=== PATIENT | female | born 1950 | race Caucasian/White ===

== ENCOUNTER 2023-09-10 07:02 | Day surgery (SDC) | payer BC, SELFPAY ==
--- NOTE | 2023-09-07 08:40 | HO.ANESPROP2 ---
Documented by User: Carleen Paris NP 09/07/23 08:40 HPI - Anesthesia Eval Consult details Narrative: 72yo F for Left Cataract Extraction IOL Insertion PCP cleared No previous cataract on record PMFSH Past Medical History Medical History Hearing loss Panic attacks History of pernicious anemia Stress incontinence Solitary lung nodule Chronic sinusitis History of pneumonia Cataract Herpes GERD (gastroesophageal reflux disease) Thyroid disorder Depression Bipolar disorder Hypothyroid HTN (hypertension) Surgical History Surgical History History of tonsillectomy and adenoidectomy History of bladder surgery History of surgery (~1987) Hx of colonoscopy Hx of esophagogastroduodenoscopy Social History Social History Patient Tobacco Use Status: Never used Tobacco Are you DNR?: No Advance Directives: No Advance Directives Information Provided: Yes Recently lost weight without trying: No Nutrition Risks: No Nutritional Risk Meds Allergies Allergy/AdvReac Type Severity Reaction Status Date / Time No Known Allergies Allergy Unverified 04/15/20 17:56 Home Medications Medication Instructions Recorded Confirmed Last Taken Type acyclovir 400 mg tablet 400 mg PO DAILY 09/06/23 09/06/23 Unknown History alprazolam 0.5 mg tablet 0.5 mg PO DIRECTED 09/06/23 09/06/23 Unknown History amlodipine 5 mg tablet 5 mg PO DAILY 09/06/23 09/06/23 Unknown History bupropion HCl 300 mg 24 hr tablet, 300 mg PO QAM 09/06/23 09/06/23 Unknown History extended release cyanocobalamin (vitamin B-12) mcg IM 09/06/23 Unknown History 1,000 mcg/mL injection solution diclofenac sodium 50 mg 50 mg PO BID 09/06/23 09/06/23 Unknown History tablet,delayed release estradiol 10 mcg vaginal tablet mcg vaginal 09/06/23 09/06/23 Unknown History (Yuvafem) lamotrigine 150 mg tablet 150 mg PO BID 09/06/23 09/06/23 Unknown History levothyroxine 100 mcg tablet 100 mcg PO DAILY 09/06/23 09/06/23 Unknown History (Synthroid) lisinopril 10 mg tablet 10 mg PO DAILY 09/06/23 09/06/23 Unknown History lurasidone 20 mg tablet 20 mg PO DAILY 09/06/23 09/06/23 Unknown History trospium 60 mg capsule,extended mg PO 09/06/23 Unknown History release 24 hr ascorbic acid (vitamin C) 1,000 mg 1,000 mg PO DAILY 09/07/23 09/07/23 Unknown History tablet (Vitamin C) escitalopram oxalate 20 mg tablet 20 mg PO DAILY 09/07/23 09/07/23 Unknown History (Lexapro) lorazepam 0.5 mg tablet 0.5 mg PO DAILY PRN Anxiety 09/07/23 09/07/23 Unknown History lurasidone 09/07/23 Unknown History multivitamin 1 tab PO DAILY 09/07/23 09/07/23 Unknown History Assessment and Plan Assessment Anesthesia Assessment: Chart Reviewed Documented by User: Kamala Platt MD 09/10/23 08:07 [facility] Past Medical History Medical History Hearing loss Panic attacks History of pernicious anemia Stress incontinence Solitary lung nodule Chronic sinusitis History of pneumonia Cataract Herpes GERD (gastroesophageal reflux disease) Thyroid disorder Depression Bipolar disorder Hypothyroid HTN (hypertension) Surgical History Surgical History History of tonsillectomy and adenoidectomy History of bladder surgery History of surgery (~1987) Hx of colonoscopy Hx of esophagogastroduodenoscopy History of Problems with Anesthesia: No Social History Social History Patient Tobacco Use Status: Never used Tobacco Are you DNR?: No Advance Directives: No Advance Directives Information Provided: Yes Recently lost weight without trying: No Nutrition Risks: No Nutritional Risk Meds Allergies Allergy/AdvReac Type Severity Reaction Status Date / Time No Known Allergies Allergy Unverified 04/15/20 17:56 Home Medications Medication Instructions Recorded Confirmed Last Taken Type acyclovir 400 mg tablet 400 mg PO DAILY 09/06/23 09/06/23 Unknown History alprazolam 0.5 mg tablet 0.5 mg PO DIRECTED 09/06/23 09/06/23 Unknown History amlodipine 5 mg tablet 5 mg PO DAILY 09/06/23 09/06/23 Unknown History bupropion HCl 300 mg 24 hr tablet, 300 mg PO QAM 09/06/23 09/06/23 Unknown History extended release cyanocobalamin (vitamin B-12) mcg IM 09/06/23 Unknown History 1,000 mcg/mL injection solution diclofenac sodium 50 mg 50 mg PO BID 09/06/23 09/06/23 Unknown History tablet,delayed release estradiol 10 mcg vaginal tablet mcg vaginal 09/06/23 09/06/23 Unknown History (Yuvafem) lamotrigine 150 mg tablet 150 mg PO BID 09/06/23 09/06/23 Unknown History levothyroxine 100 mcg tablet 100 mcg PO DAILY 09/06/23 09/06/23 Unknown History (Synthroid) lisinopril 10 mg tablet 10 mg PO DAILY 09/06/23 09/06/23 Unknown History lurasidone 20 mg tablet 20 mg PO DAILY 09/06/23 09/06/23 Unknown History trospium 60 mg capsule,extended mg PO 09/06/23 Unknown History release 24 hr ascorbic acid (vitamin C) 1,000 mg 1,000 mg PO DAILY 09/07/23 09/07/23 Unknown History tablet (Vitamin C) escitalopram oxalate 20 mg tablet 20 mg PO DAILY 09/07/23 09/07/23 Unknown History (Lexapro) lorazepam 0.5 mg tablet 0.5 mg PO DAILY PRN Anxiety 09/07/23 09/07/23 Unknown History lurasidone 09/07/23 Unknown History multivitamin 1 tab PO DAILY 09/07/23 09/07/23 Unknown History Exam Airway Mallampati Class: II TM Dist: >3cm Neck ROM: Full Loose/Missing/Broken Teeth: No Heart: RRR Lungs: CTA Assessment and Plan Assessment Anesthesia Assessment: Anesthesia Plan Discussed Final Anesthetic Review History of Problems with Anesthesia: No NPO: Yes ASA Class: II Final Preanesthetic Review: Meds/Allgs Chart Reviewed, Consent Obtained/Reviewed and Anes Risks/Benef Reviewed Patient Risk: Low Procedure Risk: Low Anesthetic Plan Anesthetic Plan: MAC: Disposition: Standard PACU
[2023-09-07 11:14] VITALS: BMI 23.7
[2023-09-10 07:43] VITALS: BP 152/79; PULSE 67; RESP 18; TEMP 36.3; O2SAT 96
[2023-09-10] MEDS: Tetracaine HCl/PF 0.5% Oph Sol 4 ML DROPS 1 DROP EYE-LEFT (07:58)
[2023-09-10] MEDS: Lactated Ringers 500 ML 50 ML IV (07:58)
[2023-09-10] MEDS: Tropicamide 1 % Ophth Sol 3 ML BTL 1 DROP EYE-LEFT ×3 (07:59→08:01)
[2023-09-10] MEDS: Ketorolac Tromethamine 0.5% Op 5 ML DROPS 1 DROP EYE-LEFT ×3 (07:59→08:01)
[2023-09-10] MEDS: Phenylephrine HCL 2.5% Oph SoL 2 ML BOTTLE 1 DROP EYE-LEFT ×3 (07:59→08:01)
[2023-09-10] MEDS: Cyclopentolate 1 % Ophth Sol 2 ML DRPBTL 1 DROP EYE-LEFT ×3 (07:59→08:01)
--- NOTE | 2023-09-10 08:57 | MHC.SHP ---
Pre-Procedural Eval Section A - 24 Hr Update-Section A only Date of Service: 09/10/23 The patient is an INPATIENT: No Changes since office visit: No Cold of Flu in the past 2 weeks, No New Medical Problems, No Changes in Medication and No Patient answered all questions The patient has been examined within 24 hours of the surgical procedure. The History & Physical has been completed within 30 days and I have reviewed it.: Yes Section B - Complete if H&P > 30 days Chief Complaint: Age-related nuclear cataract, left eye Allergies: Allergies Allergy/AdvReac Type Severity Reaction Status Date / Time No Known Allergies Allergy Unverified 04/15/20 17:56 Plan I have reviewed the history and physical and performed a pertinent physical examination on my patient. No changes have occurred unless specified. Time Spent With Patient Time: Total time managing care of this patient today ____ minutes.
--- NOTE | 2023-09-10 08:57 | HO.PNOPHT ---
Ophthalmology Procedure Procedure Date of Service: 09/10/23 Ophthalmology Viscoelastic: Healon Duet Dual Pack Pro Ophthalmology Lenses: Other (MA60 20.5) Procedure Notes: PREOPERATIVE DIAGNOSIS: Decreased visual acuity left eye secondary to cataract POSTOPERATIVE DIAGNOSIS: Same PROCEDURE: Left cataract extraction with intraocular lens insertion SURGEON: Kirt Rea M.D. ANESTHESIA: Topical/MAC ESTIMATED BLOOD LOSS: None COMPLICATIONS: None After obtaining informed consent, the patient was brought to the operation room suite and placed in the supine position. After adequate sedation per anesthesia, topical drops of Tetracaine were given to the left eye. The eye was then prepped and draped in the usual sterile fashion. The operating room microscope was then positioned over the operative eye and a lid speculum placed. A paracentesis was created. Viscoelastic was then instilled into the anterior chamber. A three plane incision was then created temporally, utilizing a 2.85 mm keratome. Capsulotomy forceps were then utilized to create a circular tear capsulotomy. Hydrodissection and hydrodelineation were carried out until adequate mobilization of the nucleus occurred. Phacoemulsification was then utilized to remove the dense central nucleus followed by removal of the cortical material utilizing the automated aspiration irrigation unit. Viscoat elastic was instilled into the posterior capsular bag followed by placement of a posterior chamber intraocular lens without difficulty. The residual Viscoat elastic was then removed utilizing the automated IA machine. The wound was check and found to be watertight. The patient tolerated the procedure well and the lid speculum was removed. Intracameral injection of Vigamox 0.1 mL followed by a subtenon injection of Kenalog-40 0.2 mL were administered. The patient will be seen in the a.m.
[2023-09-10 09:23] VITALS: BP 135/76; PULSE 66; RESP 16; TEMP 36.4; O2SAT 96
== END 2023-09-10 09:38 | disposition home or self-care (01) ==
PROVIDERS: Visit Provider Ophthalmology
PROC: (CPT 66985; principal; 2023-09-10 08:40)
DX: H25.12 Age-related nuclear cataract, left eye (principal); Z83.511 Family history of glaucoma; H52.4 Presbyopia; D31.42 Benign neoplasm of left ciliary body; H40.013 Open angle with borderline findings, low risk, bilateral; H18.413 Arcus senilis, bilateral; H11.153 Pinguecula, bilateral; I10 Essential (primary) hypertension; E03.9 Hypothyroidism, unspecified; Z79.899 Other long term (current) drug therapy; Z87.891 Personal history of nicotine dependence
CPT/HCPCS: 66984; J2250; J3010; J3301; V2630

== ENCOUNTER 2023-10-01 07:58 | Day surgery (SDC) | payer BC, SELFPAY ==
[2023-09-26 15:57] VITALS: BMI 23.7
--- NOTE | 2023-09-28 10:37 | HO.ANESPROP2 ---
Documented by User: Carleen Paris NP 09/28/23 10:38 HPI - Anesthesia Eval Consult details Narrative: 72yo F for Right Cataract Extraction IOL Insertion Medically cleared Left eye 09/10/23: Fent 50, Midaz 1 PMFSH Past Medical History Medical History Hearing loss Panic attacks History of pernicious anemia Stress incontinence Solitary lung nodule Chronic sinusitis History of pneumonia Cataract Herpes GERD (gastroesophageal reflux disease) Thyroid disorder Depression Bipolar disorder Hypothyroid HTN (hypertension) Surgical History Surgical History (Updated 09/26/23 @ 15:58 by Susanna Burks RN) Hx of left cataract extraction (09/10/23) History of tonsillectomy and adenoidectomy History of bladder surgery History of surgery (~1987) Hx of colonoscopy Hx of esophagogastroduodenoscopy History of Problems with Anesthesia: No Social History Social History Patient Tobacco Use Status: Never used Tobacco Are you DNR?: No Advance Directives: No Advance Directives Information Provided: Yes Nutrition Risks: No Nutritional Risk Meds Allergies Allergy/AdvReac Type Severity Reaction Status Date / Time No Known Allergies Allergy Unverified 04/15/20 17:56 Home Medications Medication Instructions Recorded Confirmed Last Taken Type acyclovir 400 mg tablet 400 mg PO DAILY 09/06/23 09/06/23 Unknown History alprazolam 0.5 mg tablet 0.5 mg PO DIRECTED 09/06/23 09/06/23 Unknown History amlodipine 5 mg tablet 5 mg PO DAILY 09/06/23 09/06/23 Unknown History bupropion HCl 300 mg 24 hr tablet, 300 mg PO QAM 09/06/23 09/06/23 Unknown History extended release cyanocobalamin (vitamin B-12) mcg IM 09/06/23 Unknown History 1,000 mcg/mL injection solution diclofenac sodium 50 mg 50 mg PO BID 09/06/23 09/06/23 Unknown History tablet,delayed release estradiol 10 mcg vaginal tablet mcg vaginal 09/06/23 09/06/23 Unknown History (Yuvafem) lamotrigine 150 mg tablet 150 mg PO BID 09/06/23 09/06/23 Unknown History levothyroxine 100 mcg tablet 100 mcg PO DAILY 09/06/23 09/06/23 Unknown History (Synthroid) lisinopril 10 mg tablet 10 mg PO DAILY 09/06/23 09/06/23 Unknown History lurasidone 20 mg tablet 20 mg PO DAILY 09/06/23 09/06/23 Unknown History trospium 60 mg capsule,extended mg PO 09/06/23 Unknown History release 24 hr ascorbic acid (vitamin C) 1,000 mg 1,000 mg PO DAILY 09/07/23 09/07/23 Unknown History tablet (Vitamin C) escitalopram oxalate 20 mg tablet 20 mg PO DAILY 09/07/23 09/07/23 Unknown History (Lexapro) lorazepam 0.5 mg tablet 0.5 mg PO DAILY PRN Anxiety 09/07/23 09/07/23 Unknown History lurasidone 09/07/23 Unknown History multivitamin 1 tab PO DAILY 09/07/23 09/07/23 Unknown History Exam Height,Weight and Vital Signs: Height 5 ft 3.25 in Weight 61.23 kg Assessment and Plan Assessment Anesthesia Assessment: Chart Reviewed Final Anesthetic Review History of Problems with Anesthesia: No Documented by User: Santos Whittington MD 10/01/23 10:08 [facility] Past Medical History Medical History Hearing loss Panic attacks History of pernicious anemia Stress incontinence Solitary lung nodule Chronic sinusitis History of pneumonia Cataract Herpes GERD (gastroesophageal reflux disease) Thyroid disorder Depression Bipolar disorder Hypothyroid HTN (hypertension) Family History Family history of problems with anesthesia: No Surgical History Surgical History (Updated 09/26/23 @ 15:58 by Susanna Burks RN) Hx of left cataract extraction (09/10/23) History of tonsillectomy and adenoidectomy History of bladder surgery History of surgery (~1987) Hx of colonoscopy Hx of esophagogastroduodenoscopy Social History Social History Patient Tobacco Use Status: Never used Tobacco Are you DNR?: No Advance Directives: No Advance Directives Information Provided: Yes Nutrition Risks: No Nutritional Risk Meds Allergies Allergy/AdvReac Type Severity Reaction Status Date / Time No Known Allergies Allergy Unverified 04/15/20 17:56 Home Medications Medication Instructions Recorded Confirmed Last Taken Type acyclovir 400 mg tablet 400 mg PO DAILY 09/06/23 09/06/23 Unknown History alprazolam 0.5 mg tablet 0.5 mg PO DIRECTED 09/06/23 09/06/23 Unknown History amlodipine 5 mg tablet 5 mg PO DAILY 09/06/23 09/06/23 Unknown History bupropion HCl 300 mg 24 hr tablet, 300 mg PO QAM 09/06/23 09/06/23 Unknown History extended release cyanocobalamin (vitamin B-12) mcg IM 09/06/23 Unknown History 1,000 mcg/mL injection solution diclofenac sodium 50 mg 50 mg PO BID 09/06/23 09/06/23 Unknown History tablet,delayed release estradiol 10 mcg vaginal tablet mcg vaginal 09/06/23 09/06/23 Unknown History (Yuvafem) lamotrigine 150 mg tablet 150 mg PO BID 09/06/23 09/06/23 Unknown History levothyroxine 100 mcg tablet 100 mcg PO DAILY 09/06/23 09/06/23 Unknown History (Synthroid) lisinopril 10 mg tablet 10 mg PO DAILY 09/06/23 09/06/23 Unknown History lurasidone 20 mg tablet 20 mg PO DAILY 09/06/23 09/06/23 Unknown History trospium 60 mg capsule,extended mg PO 09/06/23 Unknown History release 24 hr ascorbic acid (vitamin C) 1,000 mg 1,000 mg PO DAILY 09/07/23 09/07/23 Unknown History tablet (Vitamin C) escitalopram oxalate 20 mg tablet 20 mg PO DAILY 09/07/23 09/07/23 Unknown History (Lexapro) lorazepam 0.5 mg tablet 0.5 mg PO DAILY PRN Anxiety 09/07/23 09/07/23 Unknown History lurasidone 09/07/23 Unknown History multivitamin 1 tab PO DAILY 09/07/23 09/07/23 Unknown History Exam Airway Mallampati Class: II TM Dist: >3cm Neck ROM: Full Assessment and Plan Assessment Anesthesia Assessment: Anesthesia Plan Discussed Final Anesthetic Review Family History of Problems with Anesthesia: No NPO: Yes ASA Class: III Final Preanesthetic Review: No Changes in Pt Med Stat, Meds/Allgs Chart Reviewed, Consent Obtained/Reviewed and Anes Risks/Benef Reviewed Patient Risk: Intermediate Procedure Risk: Low Anesthetic Plan Anesthetic Plan: MAC: Disposition: Standard PACU
[2023-10-01] MEDS: Lactated Ringers 500 ML 50 ML IV (09:44)
[2023-10-01] MEDS: Tropicamide 1 % Ophth Sol 3 ML BTL 1 DROP EYE-RIGHT ×3 (09:45→09:53)
[2023-10-01] MEDS: Ketorolac Tromethamine 0.5% Op 5 ML DROPS 1 DROP EYE-RIGHT ×3 (09:45→09:53)
[2023-10-01] MEDS: Cyclopentolate 1 % Ophth Sol 2 ML DRPBTL 1 DROP EYE-RIGHT ×3 (09:45→09:54)
[2023-10-01] MEDS: Tetracaine HCl/PF 0.5% Oph Sol 4 ML DROPS 1 DROP EYE-RIGHT (09:45)
[2023-10-01] MEDS: Phenylephrine HCL 2.5% Oph SoL 2 ML BOTTLE 1 DROP EYE-RIGHT ×3 (09:45→09:53)
[2023-10-01 10:04] VITALS: BP 140/81; PULSE 66; RESP 18; TEMP 36.7; O2SAT 97
--- NOTE | 2023-10-01 12:15 | MHC.SHP ---
Pre-Procedural Eval Section A - 24 Hr Update-Section A only Date of Service: 10/01/23 The patient is an INPATIENT: No Changes since office visit: No Cold of Flu in the past 2 weeks, No New Medical Problems, No Changes in Medication and No Patient answered all questions The patient has been examined within 24 hours of the surgical procedure. The History & Physical has been completed within 30 days and I have reviewed it.: Yes Section B - Complete if H&P > 30 days Chief Complaint: Age-related nuclear cataract, right eye Allergies: Allergies Allergy/AdvReac Type Severity Reaction Status Date / Time No Known Allergies Allergy Unverified 04/15/20 17:56 Plan Diagnosis/Plan: Unchanged I have reviewed the history and physical and performed a pertinent physical examination on my patient. No changes have occurred unless specified. Time Spent With Patient Time: Total time managing care of this patient today ____ minutes.
--- NOTE | 2023-10-01 12:16 | HO.PNOPHT ---
Ophthalmology Procedure Procedure Date of Service: 10/01/23 Ophthalmology Viscoelastic: Healon Duet Dual Pack Pro Ophthalmology Lenses: Other (ma60 20) Procedure Notes: PREOPERATIVE DIAGNOSIS: Decreased visual acuity right eye secondary to cataract POSTOPERATIVE DIAGNOSIS: Same PROCEDURE: Right cataract extraction with intraocular lens insertion SURGEON: Kirt Rea M.D. ANESTHESIA: Topical/MAC ESTIMATED BLOOD LOSS: None COMPLICATIONS: None After obtaining informed consent, the patient was brought to the operating room suite and placed in the supine position. After adequate sedation per anesthesia, topical drops of Tetracaine were given to the right eye. The eye was then prepped and draped in the usual sterile fashion. The operating room microscope was then positioned over the operative eye and a lid speculum placed. A paracentesis was created. Viscoelastic was then instilled into the anterior chamber. A three plane incision was then created temporally, utilizing a 2.85 mm keratome. Capsulotomy forceps were then utilized to create a circular tear capsulotomy. Hydrodissection and hydrodelineation were carried out until adequate mobilization of the nucleus occurred. Phacoemulsification was then utilized to remove the dense central nucleus followed by removal of the cortical material utilizing the automated aspiration irrigation unit. Viscoelastic was instilled into the posterior capsular bag followed by placement of a posterior chamber intraocular lens without difficulty. The residual Viscoelastic was then removed utilizing the automated IA machine. The wound was checked and found to be watertight. The patient tolerated the procedure well and the lid speculum was removed. Intracameral injection of Vigamox 0.1 mL followed by a subtenon injection of Kenalog-40 0.2 mL were administered. The patient will be seen in the a.m.
[2023-10-01 12:55] VITALS: BP 129/63; PULSE 64; RESP 14; TEMP 36.3; O2SAT 99
[2023-10-01 12:58] VITALS: BP 130/65; PULSE 62; RESP 15; TEMP 36.3; O2SAT 97
== END 2023-10-01 13:00 | disposition home or self-care (01) ==
PROVIDERS: Visit Provider Ophthalmology
PROC: (CPT 66985; principal; 2023-10-01 10:00)
DX: H25.11 Age-related nuclear cataract, right eye (principal); H52.4 Presbyopia; H40.013 Open angle with borderline findings, low risk, bilateral; H18.413 Arcus senilis, bilateral; H11.153 Pinguecula, bilateral; D31.42 Benign neoplasm of left ciliary body; I10 Essential (primary) hypertension; F31.9 Bipolar disorder, unspecified; Z87.891 Personal history of nicotine dependence; Z83.511 Family history of glaucoma; Z79.899 Other long term (current) drug therapy
CPT/HCPCS: 66984; J2250; J3010; J3301; V2630